=== PATIENT | female | born 1950 | race Caucasian/White ===

== ENCOUNTER 2017-11-21 08:11 | Day surgery (SDC) | payer MEDICARE, MEDICAID ==
[~2017-11-21 08:11] MED LIST: ACYCLOVIR400 MG PO; AMOXICILLIN500 MG PO; GABAPENTIN300 MG PO; HYDROCHLORO25 MG/TAB PO; HYDROCO/APAP1 TA9 PO; LISINOPRIL10 MG PO; LORTAB 10 PO; LORTAB5 PO; LOVASTATIN10 MG PO; MELOXICAM; NO; TAM75CAP PO; TYLENOL325 MG PO
[2017-11-21 12:00] VITALS: BP 144/78
== END 2017-11-21 10:20 | disposition home or self-care (01) ==
LOC: ENDO 08:11
PROVIDERS: ATTEND Surgery
PROC: 0DJD8ZZ Inspection of Lower Intestinal Tract, Via Natural or Artificial Opening Endoscopic (ICD-10-PCS; principal; 2017-11-21)
DX: Z12.11 Encounter for screening for malignant neoplasm of colon (principal); K57.30 Diverticulosis of large intestine without perforation or abscess without bleeding; I10 Essential (primary) hypertension; M19.90 Unspecified osteoarthritis, unspecified site

== ENCOUNTER → 2018-11-17 | Outpatient (REF) | payer MEDICARE, MEDICAID ==
[2018-11-17 08:32] LABS: HEMATOCRIT 43.1 % (37.0-47.0); HEMOGLOBIN 14.1 g/dl (12.0-16.0); MEAN CELL VOLUME 92.3 fL CALC (80.0-100.0); MEAN CORPUSCULAR HGB 30.2 pG CALC (26.0-32.0); MEAN CORPUSCULAR HGB CONC 32.7 g/L CALC (32.0-36.0); RED BLOOD COUNT 4.67 mill/uL (4.20-5.60); RED CELL DISTRI WIDTH 12.5 % (11.5-15.5)
[2018-11-17 08:53] LABS: ALBUMIN 4.3 g/dL (3.2-5.0); ALKALINE PHOSPHATASE 64 u/l (38-126); ANION GAP 13 (6-22 (CALC)); BILIRUBIN, TOTAL 0.5 mg/dL (0.0-1.4); BUN 24 mg/dL (8-23); BUN/CREATININE RATIO 30 (12-20 (CALC)); CALCULATED LDLCHOLESTEROL 190 mg/dL (62-129 (CALC)); CARBON DIOXIDE 28 mmol/l (22-30); CHLORIDE 103 mmol/l (95-108); CHOLESTEROL HDL RATIO 4.7 (<4.4 (CALC)); CREATININE 0.8 mg/dL (0.5-1.0); GFR > 60 ML/MIN (>=60 (CALC)); GFR FOR AFR.AMER. > 60 ML/MIN (>=60 (CALC)); HDL CHOLESTEROL 60 mg/dL (>=40); POTASSIUM 4.2 mmol/l (3.5-5.1); SGOT/AST 22 u/l (9-36); SODIUM 140 mmol/l (137-146); TOTAL CHOLESTEROL 284 mg/dl (0-199); TOTAL PROTEIN 7.2 g/dL (6.3-8.2); TOTAL TRIGLYCERIDES 170 mg/dl (30-149); VLDL CHOLESTROL 34 mg/dl (1-41 (CALC))
[2018-11-17 09:20] LABS: URINE BILIRUBIN - DIPSTICK NEGATIVE (NEGATIVE); URINE BLOOD DIPSTICK TRACE-INTACT (NEGATIVE); URINE COLOR YELLOW; URINE GLUCOSE - DIPSTICK NEGATIVE (NEGATIVE); URINE KETONE NEGATIVE (NEGATIVE); URINE LEUK ESTERASE NEGATIVE (NEGATIVE); URINE NITRITE - DIPSTICK NEGATIVE (Negative); URINE PH 5.5 (4.5-8.0); URINE PROTEIN - DIPSTICK NEGATIVE (NEG-TRACE); URINE SPECIFIC GRAVITY 1.025; URINE UROBILINOGEN - DIPSTICK 0.2 E.U./dL (0.2)
[2018-11-17 09:23] LABS: TSH, 3RD GENERATION 2.11 uIU/mL (0.47 - 4.68)
== END | disposition home or self-care (01) ==
LOC: LAB 08:05
PROVIDERS: ATTEND Nurse Practitioner
DX: I10 Essential (primary) hypertension (principal)

== ENCOUNTER 2019-10-24 08:22 | Inpatient (IN) | payer MEDICARE, MEDICAID ==
[~2019-10-24] VITALS: Ht 165.1 cm; Wt 80.3 kg
[2019-10-24] MEDS ORDERED: MELOXICAM15 MG PO (10:18)
[2019-10-24] MEDS ORDERED: LIPITOR10 M1 PO (10:19)
[2019-10-24] MEDS ORDERED: LYRICA50 MG PO (10:19)
[2019-10-27] VITALS (8 sets, daily range): BP systolic 122–152; BP diastolic 45–66
[2019-10-27 10:14] LABS: BARBITURATES NEGATIVE (NEGATIVE); COCAINE NEGATIVE (NEGATIVE); METHADONE NEGATIVE (NEGATIVE); OXCYCODONE NEGATIVE (NEGATIVE); TETRAHYDROCANNABIONOL NEGATIVE (NEGATIVE); TRICYLIC ANTIDEPRESSANTS NEGATIVE (NEGATIVE)
[2019-10-27 10:38] LABS: HEMATOCRIT 45.2 % (37.0-47.0); HEMOGLOBIN 14.5 g/dl (12.0-16.0); IMMATURE GRANULOCYTES 0.3 % (0.0-5.0); MEAN CELL VOLUME 93.6 fL CALC (80.0-100.0); MEAN CORPUSCULAR HGB CONC 32.1 g/L CALC (32.0-36.0); NEUT# 3.93 thou/uL (2.00-7.15); RED BLOOD COUNT 4.83 mill/uL (4.20-5.60); RED CELL DISTRI WIDTH 12.7 % (11.5-15.5)
[2019-10-27 10:59] LABS: ALBUMIN 4.4 g/dL (3.2-5.0); ANION GAP 13 (6-22 (CALC)); BUN 20 mg/dL (8-23); BUN/CREATININE RATIO 26 (12-20 (CALC)); CARBON DIOXIDE 28 mmol/l (22-30); CHLORIDE 102 mmol/l (95-108); CREATININE 0.8 mg/dL (0.5-1.0); GFR > 60 ML/MIN (>=60 (CALC)); GFR FOR AFR.AMER. > 60 ML/MIN (>=60 (CALC)); SGOT/AST 26 u/l (9-36); SODIUM 139 mmol/l (137-146)
[2019-10-27 11:00] LABS: ALKALINE PHOSPHATASE 103 u/l (38-126); BILIRUBIN, TOTAL 0.7 mg/dL (0.0-1.4); TOTAL PROTEIN 7.9 g/dL (6.3-8.2)
[2019-10-28 00:11] VITALS: BP 105/62
[2019-10-28 04:03] VITALS: BP 125/65
[2019-10-28 06:21] LABS: HEMOGLOBIN 10.8 g/dl (12.0-16.0)
[2019-10-28 08:07] VITALS: BP 136/73
[2019-10-28 10:57] VITALS: BP 109/36
[2019-10-28 15:15] VITALS: BP 136/77
[2019-10-28 19:10] VITALS: BP 127/49
[2019-10-29] VITALS: BP 137/56
[2019-10-29 01:49] VITALS: BP 139/55
[2019-10-29 04:40] VITALS: BP 133/52
[2019-10-29 06:40] LABS: HEMATOCRIT 33.4 % (37.0-47.0); HEMOGLOBIN 10.5 g/dl (12.0-16.0); IMMATURE GRANULOCYTES 0.4 % (0.0-5.0); MEAN CELL VOLUME 94.9 fL CALC (80.0-100.0); MEAN CORPUSCULAR HGB 29.8 pG CALC (26.0-32.0); MEAN CORPUSCULAR HGB CONC 31.4 g/L CALC (32.0-36.0); NEUT# 8.34 thou/uL (2.00-7.15); RED BLOOD COUNT 3.52 mill/uL (4.20-5.60); RED CELL DISTRI WIDTH 13.1 % (11.5-15.5)
[2019-10-29 07:09] LABS: ANION GAP 11 (6-22 (CALC)); BUN 15 mg/dL (8-23); BUN/CREATININE RATIO 19 (12-20 (CALC)); CARBON DIOXIDE 29 mmol/l (22-30); CHLORIDE 99 mmol/l (95-108); CREATININE 0.8 mg/dL (0.5-1.0); GFR > 60 ML/MIN (>=60 (CALC)); GFR FOR AFR.AMER. > 60 ML/MIN (>=60 (CALC)); SODIUM 136 mmol/l (137-146)
[2019-10-29 08:00] VITALS: BP 124/57
[2019-10-29 08:42] VITALS: BP 124/57
== END 2019-10-29 16:30 | DRG 470 ==
LOC: MS2 10-27 09:17
PROVIDERS: Nurse Practitioner Family; ADMIT Orthopaedic Surgery; ATTEND Internal Medicine
PROC: 0SRD0J9 Replacement of Left Knee Joint with Synthetic Substitute, Cemented, Open Approach (ICD-10-PCS; principal; 2019-10-27)
PROC: 3E0T3BZ Introduction of Anesthetic Agent into Peripheral Nerves and Plexi, Percutaneous Approach (ICD-10-PCS; 2019-10-27)
DX: M17.0 Bilateral primary osteoarthritis of knee (principal); I10 Essential (primary) hypertension; M79.7 Fibromyalgia; E78.5 Hyperlipidemia, unspecified; K58.1 Irritable bowel syndrome with constipation; G89.18 Other acute postprocedural pain
CPT/HCPCS: J0131; J1100; J2710

== ENCOUNTER 2019-11-09 | Emergency (ER) | payer MEDICARE, MEDICAID ==
[~2019-11-09] MED LIST changes: +LIPITOR10 M1 PO; +LYRICA50 MG PO; +MELOXICAM15 MG PO
[2019-11-09] MEDS ORDERED: ADULT ASPIRIN R81 MG PO (13:14)
[2019-11-09 13:39] LABS: HEMATOCRIT 35.7 % (37.0-47.0); HEMOGLOBIN 11.7 g/dl (12.0-16.0); IMMATURE GRANULOCYTES 0.5 % (0.0-5.0); MEAN CELL VOLUME 92.7 fL CALC (80.0-100.0); MEAN CORPUSCULAR HGB 30.4 pG CALC (26.0-32.0); MEAN CORPUSCULAR HGB CONC 32.8 g/L CALC (32.0-36.0); NEUT# 6.71 thou/uL (2.00-7.15); RED BLOOD COUNT 3.85 mill/uL (4.20-5.60); RED CELL DISTRI WIDTH 13.3 % (11.5-15.5)
[2019-11-09 13:48] LABS: ALBUMIN 3.8 g/dL (3.2-5.0); ALKALINE PHOSPHATASE 115 u/l (38-126); ANION GAP 11 (6-22 (CALC)); BILIRUBIN, TOTAL 0.6 mg/dL (0.0-1.4); BUN 20 mg/dL (8-23); BUN/CREATININE RATIO 25 (12-20 (CALC)); CARBON DIOXIDE 27 mmol/l (22-30); CHLORIDE 101 mmol/l (95-108); CREATININE 0.8 mg/dL (0.5-1.0); GFR > 60 ML/MIN (>=60 (CALC)); GFR FOR AFR.AMER. > 60 ML/MIN (>=60 (CALC)); POTASSIUM 4.1 mmol/l (3.5-5.1); SGOT/AST 28 u/l (9-36); SODIUM 135 mmol/l (137-146); TOTAL PROTEIN 6.8 g/dL (6.3-8.2)
[2019-11-09] MEDS ORDERED: BACTRIM DS1 TAB PO (14:33)
== END 2019-11-09 16:02 | disposition home or self-care (01) ==
DX: Z47.1 Aftercare following joint replacement surgery (principal); Z96.652 Presence of left artificial knee joint; R19.7 Diarrhea, unspecified; E86.0 Dehydration; I10 Essential (primary) hypertension

== ENCOUNTER 2019-11-11 | Emergency (ER) | payer MEDICARE, MEDICAID ==
[~2019-11-11] MED LIST changes: +ADULT ASPIRIN R81 MG PO; +BACTRIM DS1 TAB PO
[2019-11-11 17:36] LABS: HEMATOCRIT 34.9 % (37.0-47.0); HEMOGLOBIN 11.2 g/dl (12.0-16.0); IMMATURE GRANULOCYTES 0.4 % (0.0-5.0); MEAN CELL VOLUME 93.6 fL CALC (80.0-100.0); MEAN CORPUSCULAR HGB CONC 32.1 g/L CALC (32.0-36.0); NEUT# 6.89 thou/uL (2.00-7.15); RED BLOOD COUNT 3.73 mill/uL (4.20-5.60); RED CELL DISTRI WIDTH 13.4 % (11.5-15.5)
[2019-11-11 17:52] LABS: ALBUMIN 3.8 g/dL (3.2-5.0); ALKALINE PHOSPHATASE 116 u/l (38-126); ANION GAP 9 (6-22 (CALC)); BILIRUBIN, TOTAL 0.5 mg/dL (0.0-1.4); BUN 17 mg/dL (8-23); BUN/CREATININE RATIO 16 (12-20 (CALC)); CARBON DIOXIDE 28 mmol/l (22-30); CHLORIDE 102 mmol/l (95-108); GFR 55 ML/MIN (>=60 (CALC)); GFR FOR AFR.AMER. > 60 ML/MIN (>=60 (CALC)); POTASSIUM 4.7 mmol/l (3.5-5.1); SGOT/AST 25 u/l (9-36); SODIUM 134 mmol/l (137-146); TOTAL PROTEIN 6.7 g/dL (6.3-8.2)
[2019-11-11] MEDS ORDERED: CEPHALEXIN500 MG PO (19:59)
== END 2019-11-11 20:38 | disposition home or self-care (01) ==
PROVIDERS: Emergency Medicine; Family Medicine
DX: J40 Bronchitis, not specified as acute or chronic (principal); I10 Essential (primary) hypertension; Z96.652 Presence of left artificial knee joint; R06.02 Shortness of breath; M25.462 Effusion, left knee
CPT/HCPCS: Q9967

== ENCOUNTER 2020-10-26 15:29 | Emergency (ER) | payer MEDICARE, MEDICAID ==
[~2020-10-26] VITALS: Ht 165.1 cm; Wt 90.9 kg
[~2020-10-26 15:29] MED LIST changes: +CEPHALEXIN500 MG PO
[2020-10-26] MEDS ORDERED: LYRICA25 MG PO (17:13)
[2020-10-26] MEDS ORDERED: CYCLOBENZAPRINE10 MG PO (18:26)
[2020-10-26 18:45] VITALS: BP 149/89
== END 2020-10-26 18:45 | disposition home or self-care (01) ==
LOC: ED 15:29
DX: M79.7 Fibromyalgia (principal); I10 Essential (primary) hypertension; E78.00 Pure hypercholesterolemia, unspecified

== ENCOUNTER 2021-01-19 12:21 | Emergency (ER) | payer MEDICARE, MEDICAID ==
[~2021-01-19 12:21] MED LIST changes: +CYCLOBENZAPRINE10 MG PO; +LYRICA25 MG PO
[2021-01-19] MEDS ORDERED: TRAMADOL HCL50 MG PO (13:13)
[2021-01-19] MEDS ORDERED: MELOXICAM7.5 MG PO (13:14)
[2021-01-19 13:32] LABS: HEMATOCRIT 41.9 % (37.0-47.0); HEMOGLOBIN 13.4 g/dl (12.0-16.0); IMMATURE GRANULOCYTES 0.4 % (0.0-5.0); MEAN CELL VOLUME 92.7 fL CALC (80.0-100.0); MEAN CORPUSCULAR HGB 29.6 pG CALC (26.0-32.0); NEUT# 3.99 thou/uL (2.00-7.15); RED BLOOD COUNT 4.52 mill/uL (4.20-5.60); RED CELL DISTRI WIDTH 13.5 % (11.5-15.5)
[2021-01-19 13:55] LABS: ACT PARTIAL THROMBO TIME 23.7 SECONDS (20.0-32.5); ALBUMIN 4.2 g/dL (3.2-5.0); ALKALINE PHOSPHATASE 100 u/l (38-126); ANION GAP 11 (6-22 (CALC)); BILIRUBIN, TOTAL 0.6 mg/dL (0.0-1.4); BUN 13 mg/dL (8-23); BUN/CREATININE RATIO 18 (12-20 (CALC)); CARBON DIOXIDE 28 mmol/l (22-30); CHLORIDE 105 mmol/l (95-108); CREATININE 0.7 mg/dL (0.5-1.0); GFR > 60 ML/MIN (>=60 (CALC)); GFR FOR AFR.AMER. > 60 ML/MIN (>=60 (CALC)); LIPASE 586 u/l (23-300); PROTHROMBIN TIME 9.7 SECONDS (9.0-12.5); SGOT/AST 29 u/l (9-36); SODIUM 140 mmol/l (137-146); TOTAL PROTEIN 7.2 g/dL (6.3-8.2)
[2021-01-19 15:19] VITALS: BP 138/80
== END 2021-01-19 15:31 | disposition home or self-care (01) ==
LOC: ED 12:21
DX: I10 Essential (primary) hypertension (principal); E78.00 Pure hypercholesterolemia, unspecified; M79.7 Fibromyalgia
CPT/HCPCS: Q9967

== ENCOUNTER 2021-05-28 10:17 | Observation (INO) | payer MEDICARE, MEDICAID ==
[~2021-05-28] VITALS: Ht 165.1 cm; Wt 87.0 kg
[~2021-05-28 10:17] MED LIST changes: +MELOXICAM7.5 MG PO; +TRAMADOL HCL50 MG PO
--- NOTE | 2021-05-28 10:36 | NUR ---
PATIENT TO ROOM VIA WHEELCHAIR AND PHYSICIAN NOTIFIED OF PATIENT STATUS
[2021-05-28 11:46] LABS: HEMATOCRIT 41.7 % (37.0-47.0); HEMOGLOBIN 13.6 g/dl (12.0-16.0); IMMATURE GRANULOCYTES 0.1 % (0.0-5.0); MEAN CELL VOLUME 93.1 fL CALC (80.0-100.0); MEAN CORPUSCULAR HGB 30.4 pG CALC (26.0-32.0); MEAN CORPUSCULAR HGB CONC 32.6 g/dL CAL (32.0-36.0); NEUT# 4.81 thou/uL (2.00-7.15); RED BLOOD COUNT 4.48 mill/uL (4.20-5.60); RED CELL DISTRI WIDTH 12.8 % (11.5-15.5)
[2021-05-28 12:03] LABS: ALBUMIN 4.1 g/dL (3.2-5.0); ALKALINE PHOSPHATASE 83 u/l (38-126); ANION GAP 12 (6-22 (CALC)); BILIRUBIN, TOTAL 0.3 mg/dL (0.0-1.4); BUN 17 mg/dL (8-23); BUN/CREATININE RATIO 22 (12-20 (CALC)); CARBON DIOXIDE 25 mmol/l (22-30); CHLORIDE 106 mmol/l (95-108); CREATININE 0.8 mg/dL (0.5-1.0); GFR > 60 ML/MIN (>=60 (CALC)); GFR FOR AFR.AMER. > 60 ML/MIN (>=60 (CALC)); POTASSIUM 4.2 mmol/l (3.5-5.1); SGOT/AST 26 u/l (9-36); SODIUM 139 mmol/l (137-146); TOTAL PROTEIN 7.2 g/dL (6.3-8.2)
--- NOTE | 2021-05-28 12:42 | NUR ---
Reassessment of patient completed. No distress noted.
--- NOTE | 2021-05-28 12:47 | NUR ---
Reassessment of patient completed. No distress noted.
[2021-05-28] MEDS ORDERED: BUPROPION100 MG PO (14:11)
--- NOTE | 2021-05-28 15:08 | NUR ---
Reassessment of patient completed. No distress noted.
--- NOTE | 2021-05-28 16:05 | NUR ---
ATTEMPT TO CALL REPORT TO FLOOR
--- NOTE | 2021-05-28 16:28 | NUR ---
PATIENT CAME FROM ER VIA WHEELCHAIR . PATIENT AMBULATED TO THE RECLINER. VS OBTAIN. PO FLUIDS PROVIDED AND SNACKS. SAFETY PRECAUTION REINFORCED AND CALL LIGHT IN REACH.
[2021-05-28 16:30] VITALS: BP 173/80
[2021-05-28 17:39] VITALS: BP 146/73
--- NOTE | 2021-05-28 17:40 | NUR ---
ASSESSMENT DONE. PATIENT IS ALERT AND ORIENT X3. PATIENT DENIES PAIN. 20 RW THAT APPEARS HEALTHY. RESPS EVEN AND UNLABORED. TELE IN PLACE. PATIENT SEEM ANXIOUS KEEPS MOVING AROUND IN BED. SETUP PATIENT FOR DINNER. PATIENT DENIES ANY OTHER NEEDS AT THIS TIME. CALL LIGHT IN REACH.
[2021-05-28 19:30] VITALS: BP 150/83
--- NOTE | 2021-05-28 19:30 | NUR ---
PATIENT ALERT AND ORIENTED. ABLE TO MAKE NEEDS KNOWN. PLEASANT AND COOPERATIVE. ASSESSMENT COMPLETE AT THIS TIME. DENIES ANY PAIN. NO SHORTNESS OF BREATH NOTED. CALL LIGHT AND BELONGINGS WITHIN REACH.
--- NOTE | 2021-05-28 22:20 | NUR ---
PATIENT RESTING IN BED LAYING ON HER RIGHT SIDE. NO COMPLAINTS VOICED AT THIS TIME.
[2021-05-29] VITALS: BP 135/57
[2021-05-29 04:00] VITALS: BP 125/60
--- NOTE | 2021-05-29 04:20 | NUR ---
PATIENT SITTING UP IN BED, FINISHING UP HER BEVERAGE. NO COMPLAINTS VOICED AT THIS TIME. CALL LIGHT AND BELONGINGS WITHIN REACH.
[2021-05-29 07:34] VITALS: BP 152/80
--- NOTE | 2021-05-29 08:00 | NUR ---
ASSESSMENT DONE. PATIENT SITTING IN BED. PATIENT IS ALERT AND OREINT X3. TELE IN PLACE. PATIENT DENIES PAIN. PATIENT IS STARTING TO FEEL ANXIOUS MOVING HER LEGS. SHE STATED THAT AROUND 10AM SHE GETS DIZZY AND NECK PAIN THAT ITS NOT NEW. NOTIFIED PATIENT THAT DOCTOR WILL BE COMING IN. PATIENT VERBALIZED UNDERSTANDING. PATIENT DENIES ANY OTHER NEEDS AT THIS TIME. SAFETY PRECAUTIONS REINFORCED AND CALL LIGHT IN REACH.
[2021-05-29 10:08] VITALS: BP 153/78
--- NOTE | 2021-05-29 12:06 | NUR ---
PATIENT IS RESTING IN BED WITH NO DISTRESS NOTED. TELE IN PLACE. PATIENT WAITING TO BE DC. PATIENT DENIES ANY OTHER NEEDS AT THIS TIME. CALL LIGHT IN REACH.
[2021-05-29] MEDS ORDERED: XANAX0.5 MG PO (12:45)
--- NOTE | 2021-05-29 14:44 | NUR ---
Discharge instructions given. Patient verbalizes understanding of same. Discharged in stable condition via Wheelchair to Home with staff. All belongings sent with pt.
== END 2021-05-29 14:44 | disposition home or self-care (01) ==
LOC: ED 10:17 → ED-I 12:40 → ED 14:35 → MS2 14:36
PROVIDERS: Family Medicine; ADMIT Internal Medicine; ATTEND Internal Medicine
DX: R07.9 Chest pain, unspecified (principal); F41.9 Anxiety disorder, unspecified; I10 Essential (primary) hypertension; E78.5 Hyperlipidemia, unspecified; E66.9 Obesity, unspecified; M79.7 Fibromyalgia; F32.9 Major depressive disorder, single episode, unspecified; M19.90 Unspecified osteoarthritis, unspecified site; Z20.822 Contact with and (suspected) exposure to COVID-19
CPT/HCPCS: J1650

== ENCOUNTER 2024-12-11 15:54 | Emergency (ER) | payer MEDICARE ==
[~2024-12-11] VITALS: Ht 165.1 cm; Wt 69.0 kg
[~2024-12-11 15:54] MED LIST changes: +ATORVASTATIN CA10 MG PO; +BUPROPION100 MG PO; +BUPROPN HCL300 MG PO; +FLEXERIL5 M1 PO; +LISINOPRIL20 M1 PO; +PERCOCET 5/325M1 TAB PO; +PREGABALIN50 MG PO; +VOLTAREN - GENE75 MG PO; +XANAX0.5 MG PO
[2024-12-11 16:07] VITALS: BP 137/98
[2024-12-11] MEDS ORDERED: MORPHINE SULFATE 4 MG/ML VIAL IM ONE (16:10)
[2024-12-11] MEDS ORDERED: ONDANSETRON 4 MG/TAB ODT PO ONE (16:15)
[2024-12-11 16:39] VITALS: BP 158/70
[2024-12-11] MEDS ORDERED: FLEXERIL5 M1 PO (16:55)
[2024-12-11] MEDS ORDERED: EC-NAPROXEN500 MG PO (16:55)
[2024-12-11 17:01] VITALS: BP 157/83
[2024-12-11] MEDS ORDERED: CYCLOBENZAPRIN7.5 M1 PO (17:09)
[2024-12-11 17:30] VITALS: BP 159/66
== END 2024-12-11 17:35 | disposition home or self-care (01) ==
LOC: ED 15:54
DX: M47.812 Spondylosis without myelopathy or radiculopathy, cervical region (principal); I10 Essential (primary) hypertension; F41.9 Anxiety disorder, unspecified; M79.7 Fibromyalgia